=== PATIENT | female | born 2005 | race African-American/Black ===

== ENCOUNTER 2024-09-27 06:38 | Outpatient (REF) | payer MEDICAID, SELFPAY ==
--- OUTSIDE RECORDS SUMMARY | 2024-09-27 06:42 | XMS_ITS | Clinical Summary ---
Author Organization [facility] Address [address] [place] [address] Care Team Providers Care Rhinestone Setter Name Role Phone Unavailable Primary Care Provider Unavailabl e Source Comments PLEASE NOTE, if this patient is a minor, it may be UNLAWFUL to discuss sensitive information that is contained in these records (such as FAMILY PLANNING, MENTAL HEALTH or SUBSTANCE ABUSE) with the minor patient's parent or other person without the patient's specific authorization.[facility] Social History Tobacco Use Types Packs/Day Years Used Date Smoking Tobacco: Never Assessed Social Connections Answer Date Recorded Connectedness 0 06/18/2024 Financial Resource Strain Answer Date R ecorded Financial Resource Strain 0 2023 Stress Answer Date Recorded Stress 0 06/18/2024 Physical Activity Answer Date Recorded Physical Activity 0 06/18/2024 Food Insecurity Answer Date Recorded Food 0 06/18/2024 Transportation Needs Answer Date Record ed Transportation 0 06/18/2024 Housing Stability Answer Date Recorded Housing 0 06/18/2024 Safety and Environment Answer Date Bogdan rded Safety 0 06/18/2024 Utilities Answer Date Recorded Utilities 0 06/18/2024 Employment Answer Date Recorded Stress 0 06/18/2024 Comments Unknown Sex and Gender Information Value Date Recorded Sex Assigned at Not on file Legal Sex Female 1:52 PM PDT Gender Identity Not on file Sexual Orientation Not on file Plan of Treatment Upcoming Encounters Date Type Department Care Team (Late st Contact Info) Description 10/21/2024 4:00 PM EDT Office Visit Dental [address] [place] [address] Jody Toro, LITA [address] [place] [address] Health Maintenance Due Date Last Done Comments Anxiety Screening 2004 Hepatitis C Screening 2004 Tobacco Screening 2004 Imm-MMR (1 of 1 - Standard series) 02/18/2005 Chlamydia Screening 02/18/2017 Gonorrhea Screening 02/18/2017 Imm-Varicella (1 of 2 - 13+ 2-dose series) 02/18/2017 HIV Screening 02/18/2019 Imm-HPV (1 - 3-dose series) 02/18/2019 Relationship Safety Screening/Counseling 02/18/2019 Hypertension Screening (#1) 02/18/2022 Imm-DTaP/Tdap/Td (1 - Tdap) 02/18/2023 Imm-Hepatitis B (1 of 3 - 19 + 3-dose series) 02/18/2023 [id number] ( - 2023- season) 2024 Imm-Influenza (#1) 2024 Alcohol and Drug Screen 06/22/2024 Depression Annual Screen 06/22/2024 Imm-Hepatitis A Aged Out No longer el igible based on patient's age to complete this topic Insurance [place]
== END 2024-09-27 06:39 | disposition home or self-care (01) ==
LOC: HO.UMASIMG 06:38
PROVIDERS: Visit Provider Physician Assistant
DX: Z13.89 Encounter for screening for other disorder (principal)

== ENCOUNTER 2024-10-04 06:24 | Outpatient (REF) | payer MEDICAID, SELFPAY ==
--- NOTE | ~2024-10-04 | US_ITS ---
CLINICAL HISTORY: IRREGULAR PERIODS US pelvis transabdominal Comparison: None Findings: Transabdominal scanning performed. Anteverted uterus is 9.2 cm length. Normal myometrium. No endometrial lesion, 2.2 mm thickness. Right ovary 3.8 x 2.6 x 1.7 cm. Left ovary 3.1 x 2.1 x 3.5 cm. Normal color Doppler of both ovaries. No free fluid. IMPRESSION: 1. Normal pelvic ultrasound This document has been electronically signed by: Yanet Balbuena MD on 10/05/2024 16:04:11
--- OUTSIDE RECORDS SUMMARY | 2024-10-04 06:26 | XMS_ITS | Clinical Summary ---
Author Organization [facility] Address [address] [place] [address] Care Team Providers Care Milking Machine Technician Name Role Phone Unavailable Primary Care Provider [...] 4:00 PM EDT Office Visit Dental [address] [place] [address] Jody Toro, LITA [address] [place] [address] Health Maintenance Due Date Last [...] 3 - 19 + 3-dose series) 02/18/2023 [id number] ( - 2023- season) 2024 Imm-Influenza (#1) 2024 Alcohol and Drug Screen 06/22/2024 Depression Annual Screen 06/22/2024 Imm-Hepatitis A Aged Out No longer el igible based on patient's age to complete this topic Insurance [place]
== END 2024-10-04 06:25 | disposition home or self-care (01) ==
LOC: HO.UMASIMG 06:24
PROVIDERS: Visit Provider Physician Assistant
DX: N92.6 Irregular menstruation, unspecified (principal)
CPT/HCPCS: 76856